=== PATIENT | male | born 1980 | race Caucasian/White ===

== ENCOUNTER 2016-12-23 21:27 | Emergency (ER) | payer OTHER ==
[~2016-12-23] VITALS: Ht 185.4 cm; Wt 86.2 kg
[~2016-12-23 21:27] MED LIST: LISI10TA2 PO
[2016-12-23 21:30] VITALS: BP 152/101
--- NOTE | 2016-12-23 22:56 | RAD ---
PROCEDURE Venous duplex examination of the right lower extremity. HISTORY Rightleg swelling and pain. FINDINGS Duplex sonography of the proximal aspect of the greater saphenous vein and the proximal aspect of the profunda femoral vein and the entire length of the common femoral and superficial femoral and popliteal veins and the tibioperoneal trunk and the proximal aspect of the posterior tibial and peroneal veins of therightleg was performed. Normal compressibility, augmentation of color Doppler flow after calf compression, and respiratory variation of Doppler flow is seen. Thus, there are no sonographic findings of deep venous thrombosis within these veins. IMPRESSION Negative for Deep Venous Trombosis. Electronically signed by: Marco Antonio Templeton MD (December 23, 2016 22:55:16)
[2016-12-23] MEDS ORDERED: IBUP600T16 PO (23:14)
[2016-12-23] MEDS ORDERED: TRAM-48 PO (23:14)
[2016-12-23] MEDS ORDERED: CEPH-264 PO (23:14)
--- NOTE | 2016-12-23 23:14 | PHYS DOC ---
Past History Past Medical History: Cancer Past Surgical History: Other Alcohol Use: Occasionally Drug Use: None Adult General Chief Complaint Chief Complaint: FOOT INJURY PAIN HPI HPI Patient is a 36-year-old gentleman who has had a history significant for testicular cancer status post treatment that was complicated and diagnosed when he was found to have right lower 70 pain and swelling secondary to a deep vein thrombosis. Patient reports that he was treated with Lovenox and is currently not on any further anticoagulation therapy. Patient reports she's complaining of right foot swelling and pain that started approximately 5 days ago. Patient reports that he was moving And twisted his leg and he felt a pop at that time. Patient reports that he's had discomfort and swelling that's been getting progressively worse over the last 4-5 days. While he was at work his employer has insisted that he come to the ER to be evaluated for the pain and discomfort to make sure that isn't fractured. No symptoms at this time. Patient has any fevers shakes chills nausea vomiting diarrhea chest pain terns of breath cough cold or runny nose. Physical exam is significant for tenderness to palpation to the patient's distal aspect of his foot. Patient has erythema edema and mild warmth to that area. There is no nidus of infection that is appreciable. Patient of tenderness palpation plantar aspect of that same area. Patient's full range of motion intact. Patient has no bruising noted except for the edema and erythema to that area. Calf tenderness or Homans sign. Patient does not have a fever. Patient's x-ray in the ER was unremarkable for fracture. Patient's ultrasound of his right lower 70 which was negative for any DVTs. Assessment and plan #1 right foot pain this is most likely secondary to trauma however given the erythema warmth and tenderness to the right foot I'm also concerned about the possibility of an occult infection. I have discussed with the patient that I will go ahead and put him on something consistent with the pain but I feel be prudent also initiate antibiotic therapy in case this is an early cellulitis. Patient will be sent home with Motrin, Ultram, and Keflex and will be instructed to follow up closely with primary care physician within the next 24- 48 hours for reevaluation. I discussed with the patient that since he does not have a primary care physician that he needs to consider returning back to the ER within the next 1-2 days for reevaluation especially if things aren't improving. I have encouraged the patient to seek a primary care physician as soon as possible given the fact that he does have a history of testicular cancer. Review of Systems Review of Systems Constitutional: Denies fever or chills [] Eyes: Denies change in visual acuity, redness, or eye pain [] HENT: Denies nasal congestion or sore throat [] All other review systems are negative except as documented in the history of present illness portion. Allergies Allergies Allergies Coded Allergies Type Severity Reaction Last Updated Verified No Known Drug Allergies 01/16/16 No Physical Exam Physical Exam Constitutional: Well developed, well nourished, no acute distress, non-toxic appearance. [] HENT: Normocephalic, atraumatic, bilateral external ears normal, oropharynx moist, no oral exudates, nose normal. [] Eyes: PERRLA, EOMI, conjunctiva normal, no discharge. [] Neck: Normal range of motion, no tenderness, supple, no stridor. [] Cardiovascular:Heart rate regular rhythm, no murmur [] Lungs & Thorax: Bilateral breath sounds clear to auscultation [] Abdomen: Bowel sounds normal, soft, no tenderness, no masses, no pulsatile masses. [] Skin: See above. Back: No tenderness, no CVA tenderness. [] Extremities: See above. Neurologic: Alert and oriented X 3, normal motor function, normal sensory function, no focal deficits noted. [] Psychologic: Affect normal, judgement normal, mood normal. [] EKG EKG [] Radiology/Procedures Radiology/Procedures [] Course & Med Decision Making Course & Med Decision Making Pertinent Labs and Imaging studies reviewed. (See chart for details) [] Dragon Disclaimer Dragon Disclaimer This chart was dictated in whole or in part using Voice Recognition software in a busy, high-work load, and often noisy Emergency Department environment. It may contain unintended and wholly unrecognized errors or omissions. Departure Departure: Impression: Primary Impression: Right foot pain Additional Impressions: Edema of right foot Cellulitis of right foot Right foot sprain Disposition: 01 HOME, SELF-CARE Condition: IMPROVED Referrals: PCP,NO (PCP) Patient Instructions: Cellulitis, Foot Sprain Scripts Cephalexin (KEFLEX) 500 Mg Capsule 1 CAP PO TID, #30 CAP Prov: RONNIE BASS MD 12/23/16 Tramadol Hcl (ULTRAM) 50 Mg Tablet 50 MG PO PRN Q6HRS Y for PAIN, #20 TAB Prov: RONNIE BASS MD 12/23/16 Ibuprofen (IBUPROFEN) 600 Mg Tablet 600 MG PO QID Y for PAIN, #20 Prov: RONNIE BASS MD 12/23/16 Problem Qualifiers Additional Impressions: Right foot sprain Encounter type: initial encounter Qualified Codes: S93.601A - Unspecified sprain of right foot, initial encounter RONNIE BASS MD December 23, 2016 23:14
[2016-12-23] MEDS ORDERED: traMADol 50 MG TABLET PO ONE (23:30)
[2016-12-23] MEDS ORDERED: IBUPROFEN 600 MG TABLET. PO ONE (23:30)
[2016-12-23] MEDS ORDERED: CEPHALEXIN 500 MG CAPSULE PO ONE (23:30)
--- NOTE | 2016-12-24 08:13 | RAD ---
Examination: 3 views of the right foot History: History of filter pop in the right foot, redness, swelling Comparison: None available Findings: The alignment of the tarsal bones, tarsometatarsal joints, metatarsophalangeal joint grossly appears unremarkable. There is no obvious acute fracture identified. Impression: No acute osseous findings
== END 2016-12-23 23:23 | disposition home or self-care (01) ==
LOC: ER 21:27
DX: S93.601A Unspecified sprain of right foot, initial encounter (principal); L03.115 Cellulitis of right lower limb; Z86.718 Personal history of other venous thrombosis and embolism; X50.9XXA Other and unspecified overexertion or strenuous movements or postures, initial encounter; Y93.89 Activity, other specified; Y99.8 Other external cause status; Y92.89 Other specified places as the place of occurrence of the external cause
CPT/HCPCS: 73630; 93971; 99284-25

== ENCOUNTER 2017-03-19 11:27 | Emergency (ER) | payer OTHER ==
[~2017-03-19] VITALS: Ht 185.4 cm; Wt 83.9 kg
[~2017-03-19 11:27] MED LIST changes: +CEPH-264 PO; +IBUP600T16 PO; +TRAM-48 PO
[2017-03-19] MEDS ORDERED: LORazepam 1 MG TABLET PO ONE (12:00)
[2017-03-19] MEDS ORDERED: IV NORMAL SALINE 1,000ML 1,000 ML IV ONE (12:00)
[2017-03-19 12:02] LABS: BASO % 0 % (0-3); EOS % 0 % (0-3); HEMATOCRIT 40.3 % (39.0-53.0); HEMOGLOBIN 13.8 g/dL (13.0-17.5); LYMPH % 11 % (24-48); MEAN CORPUSCULAR HEMOGLOBIN 35 pg (25-35); MEAN CORPUSCULAR HGB CONC 34 g/dL (31-37); MEAN CORPUSCULAR VOLUME 102 fL (79-100); MONO # 0.4 x10^3/uL (0.0-1.1); MONO % 4 % (0-9); NEUT # 7.8 x10^3uL (1.8-7.7); NEUT % 85 % (31-73); PLATELET COUNT 232 x10^3/uL (140-400); RED BLOOD COUNT 3.96 x10^6/uL (4.30-5.70); RED CELL DISTRIBUTION WIDTH 13.3 % (11.5-14.5); WHITE BLOOD COUNT 9.2 x10^3/uL (4.0-11.0)
--- NOTE | 2017-03-19 12:10 | RAD ---
Indication stabbing chest pain. A single view of the chest was obtained. No prior imaging of the chest is available. The heart, pulmonary vessels and mediastinum appear normal. The lungs are clear. There is no pleural fluid or pneumothorax. The bony structures appear grossly intact. IMPRESSION: No acute or focal process is seen in the chest
[2017-03-19 12:11] LABS: ALBUMIN 4.4 g/dL (3.4-5.0); CALCIUM 9.1 mg/dL (8.5-10.1); CREATININE 1.8 mg/dL (0.7-1.3); DIRECT BILIRUBIN 0.2 mg/dL (0.0-0.2); GFR 43.2; POTASSIUM 3.3 mmol/L (3.5-5.1); TOTAL BILIRUBIN 0.6 mg/dL (0.2-1.0); TOTAL PROTEIN 7.8 g/dL (6.4-8.2)
[2017-03-19] MEDS ORDERED: HYDR25TA PO (12:50)
--- NOTE | 2017-03-19 12:50 | PHYS DOC ---
Past History Past Medical History: Anxiety, Cancer Past Surgical History: Cancer Surgery Alcohol Use: Occasionally Drug Use: None Adult General Chief Complaint Chief Complaint: SHORTNESS OF BREATH HPI HPI 36-year-old male presenting to the emergency department today with shortness of breath and chest pain. He reports feeling anxious. This started this morning around 8 AM. His pain is a sharp pain that is nonradiating mild to moderate intermittent and without alleviating factors. He does report a history of testicular cancer many years ago. He has not undergone treatment with the last 6 months. He denies high blood pressure high cholesterol. He denies family history of heart disease at his age. He denies diabetes.The patient denies unilateral leg swelling hemoptysis family or personal history of blood clotting disorders. The pt denies recent immobilization or surgery. Review of systems is negative for abdominal pain nausea vomiting cyanosis or confusion. All other review of systems is negative unless otherwise noted in history of present illness. ED course: 36-year-old male presenting to the emergency department today with chest pain shortness of breath. He is notably tachycardic on initial examination likely secondary to anxiety. I considered pulmonary embolism given his history of cancer. Patient is wells low risk. Score 1.5 for tachycardia. EKG shows sinus tachycardia. [place]oudrant is mildly leftward. ST segments are congruent. Nonspecific T-wave inversions generally without any evidence of ST segment changes. Not consistent with acute coronary syndrome.Chest x-ray reviewed by myself shows no obvious infiltrate or pneumothorax present. No obvious acute cardiopulmonary process present. Otherwise blood work obtained which was unremarkable including a negative d-dimer. Heart score calculated to be 2 for one risk factor being smoking and EKG nonspecific repolarization for T- wave inversions/flattening's. Oral Ativan given for anxiety which improved the patient's symptoms dramatically. Tachycardia resolved. The patient was subsequent discharged home. The patient was then discharged home in stable condition to follow up with their primary care physician over the next 2-3 days. They were to return if their symptoms worsened or if they were concerned for any reason. [id number] discharge instructions and return precautions were given. Patient's questions were answered to their satisfaction. Patient is comfortable plan. Review of Systems Review of Systems SEE ABOVE. Current Medications Current Medications Current Medications Medications (Trade) Dose Ordered Sig/Meenakshi Start Time Stop Time Status Last Admin Dose Admin Lorazepam (Ativan) 1 mg 1X ONCE 03/19/17 12:00 03/19/17 12:01 DC 03/19/17 11:53 1 MG Sodium Chloride 1,000 ml @ 1,000 mls/hr 1X ONCE 03/19/17 12:00 03/19/17 12:59 03/19/17 11:52 1,000 MLS/HR Allergies Allergies Allergies Coded Allergies Type Severity Reaction Last Updated Verified No Known Drug Allergies 01/16/16 No Physical Exam Physical Exam Constitutional: Well developed, well nourished, no acute distress, non-toxic appearance. [] HENT: Normocephalic, atraumatic, bilateral external ears normal, oropharynx moist, no oral exudates, nose normal. [] Eyes: PERRLA, EOMI, conjunctiva normal, no discharge. [] Neck: Normal range of motion, no tenderness, supple, no stridor. [] Cardiovascular:Heart rate regular rhythm, no murmur [] Lungs & Thorax: Bilateral breath sounds clear to auscultation [] Abdomen: Bowel sounds normal, soft, no tenderness, no masses, no pulsatile masses. [] Skin: Warm, dry, no erythema, no rash. [] Back: No tenderness, no CVA tenderness. [] Extremities: No tenderness, no cyanosis, no clubbing, ROM intact, no edema. [] Neurologic: Alert and oriented X 3, normal motor function, normal sensory function, no focal deficits noted. [] Psychologic: Affect normal, judgement normal, mood normal. [] Current Patient Data Vital Signs Vital Signs Date Time Temp Pulse Resp B/P (MAP) Pulse Ox O2 Delivery O2 Flow Rate FiO2 03/19/17 11:32 98.0 135 24 100 Room Air Lab Results Laboratory Tests Test 03/19/17 11:42 White Blood Count 9.2 x10^3/uL (4.0-11.0) Red Blood Count 3.96 x10^6/uL (4.30-5.70) L Hemoglobin 13.8 g/dL (13.0-17.5) Hematocrit 40.3 % (39.0-53.0) Mean Corpuscular Volume 102 fL (79-100) H Mean Corpuscular Hemoglobin 35 pg (25-35) Mean Corpuscular Hemoglobin Concent 34 g/dL (31-37) Red Cell Distribution Width 13.3 % (11.5-14.5) Platelet Count 232 x10^3/uL (140-400) Neutrophils (%) (Auto) 85 % (31-73) H Lymphocytes (%) (Auto) 11 % (24-48) L Monocytes (%) (Auto) 4 % (0-9) Eosinophils (%) (Auto) 0 % (0-3) Basophils (%) (Auto) 0 % (0-3) Neutrophils # (Auto) 7.8 x10^3uL (1.8-7.7) H Lymphocytes # (Auto) 1.0 x10^3/uL (1.0-4.8) Monocytes # (Auto) 0.4 x10^3/uL (0.0-1.1) Eosinophils # (Auto) 0.0 x10^3/uL (0.0-0.7) Basophils # (Auto) 0.0 x10^3/uL (0.0-0.2) D-Dimer (Hillary) < 0.19 mg/L (0.00-0.50) Sodium Level 140 mmol/L (136-145) Potassium Level 3.3 mmol/L (3.5-5.1) L Chloride Level 101 mmol/L (98-107) Carbon Dioxide Level 24 mmol/L (21-32) Anion Gap 15 (6-14) H Blood Urea Nitrogen 19 mg/dL (8-26) Creatinine 1.8 mg/dL (0.7-1.3) H Estimated GFR (Cockcroft-Gault) 43.2 Glucose Level 147 mg/dL (70-99) H Calcium Level 9.1 mg/dL (8.5-10.1) Total Bilirubin 0.6 mg/dL (0.2-1.0) Direct Bilirubin 0.2 mg/dL (0.0-0.2) Aspartate Amino Transferase (AST) 21 U/L (15-37) Alanine Aminotransferase (ALT) 23 U/L (16-63) Alkaline Phosphatase 75 U/L (46-116) Troponin I Quantitative < 0.017 ng/mL (0-0.055) Total Protein 7.8 g/dL (6.4-8.2) Albumin 4.4 g/dL (3.4-5.0) Lipase 75 U/L (73-393) EKG EKG [] Radiology/Procedures Radiology/Procedures [] Course & Med Decision Making Course & Med Decision Making Pertinent Labs and Imaging studies reviewed. (See chart for details) [] Dragon Disclaimer Dragon Disclaimer This chart was dictated in whole or in part using Voice Recognition software in a busy, high-work load, and often noisy Emergency Department environment. It may contain unintended and wholly unrecognized errors or omissions. Departure Departure: Impression: Primary Impression: Chest pain Disposition: HOME, SELF-CARE Condition: STABLE Referrals: PCP,JORDAN (PCP) NORBERT PLATT MD Patient Instructions: Chest Pain (Nonspecific), Potassium Content of Foods Additional Instructions: Thank you for allowing us to participate in your care today. Followup with your primary care physician in 3 days if your symptoms do not improve. Call your Primary Doctor tomorrow and inform them of your visit today. If you do not have a primary care provider you can ask for a list of our primary care providers. Return to the emergency department you have any new or concerning findings. This should be evaluated by the primary care physician and any necessary consulting services for continued management within a few days after discharge. Return to emergency room if you have any new or concerning symptoms including but not limited to fever, chills, nausea, vomiting, intractable pain, any new rashes, chest pain, shortness of air, uncontrolled bleeding, difficulty breathing, and/or vision loss. Scripts Hydroxyzine Hcl (HYDROXYZINE HCL) 25 Mg Tablet 1 TAB PO PRN BID Y for ANXIETY / AGITATION, #10 TAB 0 Refills A careful as this medication may make sleepy. Do not operate machinery or drive on this medication. Prov: JOHNNIE IBARRA MD 03/19/17 JOHNNIE IBARRA MD Mar 19, 2017 12:50
[2017-03-19 13:10] VITALS: BP 146/84
--- NOTE | 2017-03-19 14:51 | EKG ---
[address] [address] Test Date: 2017-03-19 Test Time: 11:32:56 Pat Name: DANIELLE LOPEZ Department: Room: Gender: M Career Agent: : [id number] Requested By: JOHNNIE IBARRA Order Number: [id number] Reading MD: Jono Brown Measurements Intervals [place] Rate: 118 P: 2 OH: 128 QRS: -30 QRSD: 88 T: 61 QT: 324 QTc: 456 Interpretive Statements SINUS TACHYCARDIA ABNORMAL LEFT AXIS DEVIATION QRS(T) CONTOUR ABNORMALITY CONSIDER ANTEROLATERAL MYOCARDIAL DAMAGE CONSISTENT WITH INFERIOR INFARCT PROBABLY OLD T ABNORMALITY IN ANTERIOR LEADS RI6.01 Unconfirmed report Electronically Signed On 03-26-2017 9:11:06 CDT by Jono Brown
== END 2017-03-19 13:12 | disposition home or self-care (01) ==
LOC: ER 11:27
DX: R07.89 Other chest pain (principal); F41.9 Anxiety disorder, unspecified
CPT/HCPCS: 36415; 71010; 80048; 80076; 83690; 84484; 85027; 85379; 93005; 96360; 99285-25; J7030